=== PATIENT | male | born 1985 | race Caucasian/White ===

== ENCOUNTER 2019-03-30 01:47 | Observation (INO) ==
[2019-03-30] MEDS ORDERED: ASPIRIN ONE (01:49)
[2019-03-30] MEDS ORDERED: ASPIRIN PO ONE (02:02)
[2019-03-30 02:11] LABS: BASO# 0.03 X1000 (0.0-0.2); BASO% 0.3 % (0.0-0.8); EOS% 2.1 % (0.0-10.0); HEMATOCRIT 43.9 % (42.0-52.0); HEMOGLOBIN 14.4 g/dL (14.0-18.0); IMM GRAN# 0.03 X1000 (0.0-0.04); IMM GRAN% 0.3 % (0.0-0.5); LYMPH% 29.6 % (20.5-51.1); MCH 30.3 PG (27-31); MCHC 32.8 g/dL (33-37); MCV 92.4 FL (81-99); MONO# 1.25 X1000 (0.11-0.59); MONO% 13.2 % (1.7-9.3); NEUT# 5.14 X1000 (1.4-6.5); NEUT% 54.5 % (42.2-75.2); PLT 192 X1000 (130-400); RBC 4.75 XMIL (4.7-6.1); RDW 13.4 % (11.5-14.5); WBC 9.45 X1000 (4.8-10.8)
[2019-03-30 02:35] LABS: AGAP 12; ALBUMIN 4.7 g/dL (3.5-5.0); ALKALINE PHOSPHATASE 78 U/L (32-122); BUN 10 mg/dL (8-22); CALCIUM 8.8 mg/dL (8.8-10.2); CHLORIDE 105 mmol/L (98-107); COSMO 283; CREATININE 1.1 mg/dL (0.7-1.2); ESTIMATED GFR > 60; GLUCOSE 106 mg/dL (70-104); GOT 22 U/L (10-34); GPT 29 U/L (10-44); POTASSIUM 4.3 mmol/L (3.5-5.1); SODIUM 142 mmol/L (136-145); TCO2 26 mmol/L (25-35); TOTAL PROTEIN 7.2 g/dL (6.3-8.3)
[2019-03-30] MEDS ORDERED: MORPHINE ONE (03:40)
[2019-03-30] MEDS ORDERED: ZOFRAN ONE (03:40)
[2019-03-30] MEDS ORDERED: ZOFRAN IV ONE (03:45)
[2019-03-30] MEDS ORDERED: MORPHINE IV ONE (03:45)
--- NOTE | 2019-03-30 04:12 | EKG Report ---
Test Performed on : 03/30/2019 02:55:55 AM Test Reason : CP Blood Pressure : / mmHG Vent. Rate : 121 BPM Atrial Rate : 121 BPM P-R Int : 178 ms QRS Dur : 082 ms QT Int : 314 ms P-R-T Axes : 059 000 -13 degrees QTc Int : 445 ms Sinus tachycardia. Minimal voltage criteria for LVH, may be normal variant T wave abnormality, consider anterior ischemia Abnormal ECG When compared with ECG of 30-MAR-2019 02:55, (Unconfirmed) Nonspecific T wave abnormality, worse in Inferior leads T wave inversion now evident in Anterolateral leads Unconfirmed Result
--- NOTE | 2019-03-30 05:32 | EKG Report ---
Test Performed on : 03/30/2019 02:11:28 AM Test Reason : CP Blood Pressure : / mmHG Vent. Rate : 053 BPM Atrial Rate : 053 BPM P-R Int : 130 ms QRS Dur : 086 ms QT Int : 388 ms P-R-T Axes : 016 -03 006 degrees QTc Int : 364 ms Sinus bradycardia. Moderate voltage criteria for LVH, may be normal variant Borderline ECG When compared with ECG of 30-MAR-2019 01:52, (Unconfirmed) Sinus rhythm. has replaced Atrial flutter. Unconfirmed Result
--- NOTE | 2019-03-30 07:34 | Diag Imaging Result Doc PS360 ---
EXAM: CT ANGIOGRAM PULMONARY ARTERIES - 03/30/2019 HISTORY: CP/PE RULE OUT TECHNIQUE: CT angiogram pulmonary arteries with intravenous contrast. Axial, coronal, and 3-D MIP images are obtained. COMPARISON: None. FINDINGS: There are no filling defects identified in the pulmonary arteries. There is no indication of aortic dissection. There is mild dependent atelectasis. 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 Lungs otherwise appear clear. There is no consolidation, pleural effusion, or pneumothorax identified. IMPRESSION: No evidence of pulmonary embolism. No pneumonia. No pneumothorax. The on-call radiologist provided preliminary results at 3:44 AM on 03/30/2019. Electronically signed by Saad Harrison 03/30/2019 7:32 AM
--- NOTE | 2019-03-30 08:03 | Diag Imaging Result Doc PS360 ---
EXAM: CHEST-PORTABLE - 03/30/2019 HISTORY: CP TECHNIQUE: Portable chest one view COMPARISON: 09/19/2018 FINDINGS: Heart size appears within normal limits. Inspiration is mildly shallow. There is no pleural effusion or pneumothorax identified. IMPRESSION: Mildly shallow inspiration. No other evidence of acute disease. Electronically signed by Saad Harrison 03/30/2019 8:01 AM
[2019-03-30] MEDS ORDERED: NS 1,000 ML IV ONE (08:33)
--- NOTE | 2019-03-30 08:55 | EKG Report ---
Test Performed on : 03/30/2019 01:52:48 AM Test Reason : ER Blood Pressure : / mmHG Vent. Rate : 059 BPM Atrial Rate : 227 BPM P-R Int : 000 ms QRS Dur : 084 ms QT Int : 372 ms P-R-T Axes : 032 016 028 degrees QTc Int : 368 ms Atrial flutter. with variable AV block. Abnormal ECG When compared with ECG of 19-SEP-2018 07:06, Atrial flutter. has replaced Sinus rhythm. Unconfirmed Result
--- NOTE | 2019-03-30 08:55 | EKG Report ---
Test Performed on : 03/30/2019 02:12:07 AM Test Reason : ER Blood Pressure : / mmHG Vent. Rate : 054 BPM Atrial Rate : 054 BPM P-R Int : 134 ms QRS Dur : 084 ms QT Int : 398 ms P-R-T Axes : 022 -02 006 degrees QTc Int : 377 ms Sinus bradycardia. Moderate voltage criteria for LVH, may be normal variant Borderline ECG When compared with ECG of 30-MAR-2019 02:11, (Unconfirmed) No significant change was found Unconfirmed Result
--- NOTE | 2019-03-30 08:56 | EKG Report ---
Test Performed on : 03/30/2019 02:55:25 AM Test Reason : ER Blood Pressure : / mmHG Vent. Rate : 097 BPM Atrial Rate : 097 BPM P-R Int : 132 ms QRS Dur : 086 ms QT Int : 382 ms P-R-T Axes : 020 001 013 degrees QTc Int : 485 ms Normal sinus rhythm. with sinus arrhythmia. Minimal voltage criteria for LVH, may be normal variant Prolonged QT Abnormal ECG When compared with ECG of 30-MAR-2019 02:12, (Unconfirmed) Vent. rate has increased BY 43 BPM QT has lengthened Unconfirmed Result
--- NOTE | 2019-03-30 10:27 | HISTORY AND PHYSICAL ---
PRIMARY CARE PHYSICIAN: Dr. Shafer. CHIEF COMPLAINT: Chest pain. HISTORY OF PRESENTING ILLNESS: This is a 33-year-old male who presents to [facility] ER with complaints of left-sided chest pain that radiated down his left arm with numbness and tingling. Then, he states that he had a shooting pain across the left side of his chest to the right side. States he thought it may have been indigestion, took Mylanta, Pepcid and ibuprofen. Denied any nausea, vomiting, shortness of breath, or diaphoresis. His first 2 sets of cardiac enzymes were negative. His EKG shows sinus bradycardia at 53. He did have a bump in his D-dimer at 1.32. We did a pulmonary arteriogram that showed no evidence of a pulmonary embolism. His chest x-ray showed no evidence of acute disease, but he will be admitted for further evaluation and treatment. PAST MEDICAL HISTORY: GERD. PAST SURGICAL HISTORY: Right knee surgery x2 and bilateral shoulder surgeries. FAMILY HISTORY: Reviewed and noncontributory. SOCIAL HISTORY: Currently, he lives with family. He is a former smoker, but has been quit for many years. Denied any alcohol or illicit drug use. ALLERGIES: Penicillin. HOME MEDICATIONS: A current list will need to be obtained, reconciled, reviewed and restarted as appropriate. I will place an order for nursing to update and confirm home medications. LABORATORY DATA: White blood cell count of 9.45, hemoglobin 14.4, hematocrit 43.9, and platelets 192,000. D-dimer of 1.32. Sodium 142, potassium 4.3, chloride 105, CO2 26, BUN of 10, creatinine 1.1, and glucose 106. Cardiac enzymes were negative. ProBNP of 15. Pulmonary arteriogram showed no evidence of pulmonary embolism. No pneumonia. No pneumothorax. EKG showed sinus bradycardia at 53. REVIEW OF SYSTEMS: He denied any fever, chills, or blurred vision. He was positive for some dizziness, lightheaded, and left-sided chest pain that radiated down his left arm. Denied shortness of breath. No nausea, vomiting, constipation, diarrhea, burning or hurting with urination. PHYSICAL EXAMINATION: VITAL SIGNS: On arrival, he had a pulse of 58, respirations 24, blood pressure 138/83 and saturating 100% on room air. GENERAL: This is a 33-year-old male who is sitting up in the bed and answers questions appropriately. HEENT: Normocephalic, atraumatic. Normal ENT inspection. Oropharynx and nares are clear. EYES: Pupils are equal, round, and reactive to light and accommodation. Extraocular movements are intact. NECK: Normal inspection on normal range of motion. LUNGS: Clear to auscultation bilaterally with equal lung expansion and chest wall movement. HEART: Regular rate and rhythm. No murmurs, rubs, or gallops. ABDOMEN: Soft, nontender, and nondistended. Bowel sounds are present x4 quadrants. MUSCULOSKELETAL: He has 5/5 strength x4 extremities. NEUROLOGICAL: The cranial nerves 2-12 appear grossly intact. ASSESSMENT: 1. Chest pain. 2. Elevated D-dimer ruled out for PE. 3. Bradycardia. PLAN: He was admitted to the medical unit at [facility], and placed on telemetry and O2 per protocol. We are going to do 1 more set of cardiac enzymes to complete his series. Place him on a healthy heart diet. We are going to check an echocardiogram today. I will do a bilateral lower extremity venous Doppler since he had an elevation in his D-dimer, but he was ruled out by CTA for a PE. Place him on normal saline at 100 mL an hour. We need to update and confirm home medications as previously discussed. Further orders after seen by attending. Dictated by ILIA Cox for Roger Esqueda MD cc: ILIA Cox MD Timothy P. Weirich, MD Dr. Gill
[2019-03-30] MEDS ORDERED: MORPHINE IV PRN (12:11)
[2019-03-30] MEDS: NITROGLYCERIN SL PRN ×3 (13:01→20:23)
--- NOTE | 2019-03-30 14:42 | EKG Report ---
Test Performed on : 03/30/2019 12:22:20 PM Test Reason : CHEST PAIN Blood Pressure : / mmHG Vent. Rate : 050 BPM Atrial Rate : 050 BPM P-R Int : 134 ms QRS Dur : 090 ms QT Int : 434 ms P-R-T Axes : 026 -03 000 degrees QTc Int : 395 ms Sinus bradycardia. with sinus arrhythmia. Minimal voltage criteria for LVH, may be normal variant Borderline ECG When compared with ECG of 30-MAR-2019 02:55, (Unconfirmed) Vent. rate has decreased BY 71 BPM T wave inversion no longer evident in Anterolateral leads Unconfirmed Result
--- NOTE | 2019-03-30 14:51 | Extremity Venous Study ---
EXAM: Venous U/S Bilateral Legs - 03/30/2019 HISTORY: elevated d-dimer TECHNIQUE: Bilateral lower extremity Doppler venous ultrasound COMPARISON: None. FINDINGS: The deep veins of the bilateral lower extremities demonstrate flow and compressibility. There are no filling defects identified. IMPRESSION: No evidence of deep venous thrombosis in either lower extremity. Electronically signed by Saad Harrison 03/30/2019 2:49 PM
--- NOTE | 2019-03-30 23:11 | ECHO REPORT ---
ORDER DATE: 03/30/2019 MEASUREMENTS: Septal thickness 0.8, left ventricular internal diameter in diastole 4.9, posterior wall thickness 0.9, left ventricular internal diameter in systole 2.7, aortic root 3.7, left atrium 3.6./ SUMMARY: 1. Fair quality study. 2. Aortic valve is trileaflet and opens normally on 2-dimensional images. Peak gradient across aortic valve is less than 10 mmHg. Mitral, tricuspid, and pulmonic valves are without evidence of structural abnormality with trace tricuspid regurgitation. Aortic root is normal in size. 3. Normal left ventricular dimensions demonstrated. Estimated left ventricular ejection fraction appears to be at least 65%. No regional wall motion abnormalities are evident. Left atrium, right atrium, right ventricle are normal in size with grossly preserved right ventricular systolic function. 4. No pericardial effusion. 5. Inferior vena cava not well demonstrated. cc: MD Cary Durand CRNP Timothy P. Weirich, MD
[2019-03-31] MEDS ORDERED: TYLENOL PO PRN (14:06)
[2019-03-31 17:17] VITALS: BP 124/83
--- NOTE | 2019-03-31 18:07 | Diag Imaging Result Document ---
PROCEDURE NAME: MYOCARDIAL PERF SCAN, STR/REST - 03/31/2019 INDICATION: Chest pain. PROCEDURES PERFORMED: 1. Luis protocol stress. 2. One-day stress/rest myocardial perfusion imaging. FINDINGS: 1. Luis protocol stress dictated separately by performing physician. 2. There is no evidence of abnormal extracardiac uptake. 3. No evidence of transient ischemic dilatation, with a ratio of 0.87. 4. Perfusion imaging demonstrates essentially normal homogeneous uptake of radiotracer throughout the myocardial segments. I do not see any clear evidence of ischemic defects on this study. 5. Normal ejection fraction of 72%. End-diastolic volume 117, end-systolic volume 32. Normal wall motion. cc: MD Roger Oh MD
--- NOTE | 2019-03-31 19:56 | GRADED EXERCISE REPORT ---
DATE: 03/31/2019 INDICATION: Chest pain and bradycardia. Briefly, this is a 33-year-old male who came in with chest pain. His baseline heart rate was around 50. He has been in sinus bradycardia. Blood pressure 121/80, heart rate of 50. EKG was nonspecific. DESCRIPTION OF PROCEDURE: The patient underwent stress testing per modified Luis protocol. He achieved that around 4th standing. His peak heart rate was 171. Lowest heart rate was 49. Max METS were 12.9. He exercised for about 11 minutes. I thought he had good heart rate progression. It did take a little bit of time, but he did have elevation of heart rate. Blood pressure also increased appropriately to a max of 166/86. I felt his exercise potential was good. Good blood pressure response and heart rate response. I did not appreciate any significant ST changes. He did have in V3/V4 some 1-millimeter changes, but they were sloping and not typical for a true ST depression. AVL also had 1 drop that was a little bit atypical. He did have an episode of chest pain that almost directly coincided with a PVC. SUMMARY: In any case, the patient was stable, and his myocardial perfusion will be reported separately, but this was felt to be clinically negative and electrically negative. cc: MD Devin Ga MD
--- NOTE | 2019-04-01 11:13 | DISCHARGE SUMMARY ---
ADMISSION DATE: 03/30/2019 DISCHARGE DATE: 03/31/2019 SUBJECTIVE: The patient's chest pain is overall improved. Plan to discharge him today after stress test obtained. I think he is probably a little bit more in shape than he thinks he is and his heart rate is slow from that. He had good exercise tolerance on his testing. We are awaiting myocardial perfusion scan, once that is done should be able to go home. FOLLOWUP: Follow up with Cardiology as needed, but he had a good exercise response to his treadmill testing so we will see how things look. cc: MD Devin Ga MD
--- NOTE | 2019-04-02 03:48 | DISCHARGE SUMMARY ---
ADMISSION DATE: 03/30/2019 DISCHARGE DATE: 03/31/2019 PRIMARY CARE PHYSICIAN: Dr. Zulma Shafer. ADMISSION DIAGNOSES: 1. Chest pain. 2. Elevated D-dimer, ruled out for pulmonary embolism. 3. Bradycardia. DISCHARGE DIAGNOSES: 1. Chest pain, ruled out by myocardial perfusion scan. 2. Elevated D-dimer, ruled out for pulmonary embolism. 3. Bradycardia. SUMMARY OF FINDINGS: This is a 33-year-old male who presented to the ER with complaints of left-sided chest pain that radiated down his left arm with numbness and tingling. States that he had a shooting pain across the left side of his chest that went across to the right side. His first 2 sets of cardiac enzymes were negative. We rechecked a 3rd set that was also negative. We did an echocardiogram that showed an ejection fraction of 65% with normal left ventricular dimensions demonstrated. We did a myocardial perfusion scan that was read as normal so it was felt that he could safely be discharged home. DISCHARGE MEDICATIONS: He takes ibuprofen 800 mg p.o. p.r.n. FOLLOWUP: He will follow up with his primary care physician on 04/03/2019 at 10:30 a.m. TIME SPENT WITH PATIENT: This a 35 minute discharge. Dictated by ILIA Cox for Roger Esqueda MD cc: ILIA Cox MD Timothy P. Weirich, MD Marlin D. Gill, MD
== END 2019-03-31 20:11 | disposition home or self-care (01) ==
LOC: P.ED 01:47 → INTOOBSV 08:13 → P.MEDSURG 08:13
PROVIDERS: ADMIT Internal Medicine; ATTEND Internal Medicine